=== PATIENT | male | born 1995 | race African-American/Black ===

== ENCOUNTER 2017-09-12 00:38 | Emergency (ER) | payer OTHER ==
[2017-09-12] MEDS: diphenhydrAMINE 50 MG/ML VIAL IVP (01:57)
[2017-09-12] MEDS: PROCHLORPERAZINE 10 MG/2 ML VIAL. IV (01:57)
[2017-09-12] MEDS: IV NORMAL SALINE 1000ML BAG 1,000 ML IV (01:58)
== END 2017-09-12 03:40 | disposition home or self-care (01) ==
LOC: ER 00:38
DX: R11.2 Nausea with vomiting, unspecified (principal); R09.81 Nasal congestion; R53.81 Other malaise; J45.909 Unspecified asthma, uncomplicated; F12.10 Cannabis abuse, uncomplicated; Z88.0 Allergy status to penicillin
CPT/HCPCS: 96361; 96374; 96375; 99285-25; J0780; J1200; J7030

== ENCOUNTER 2019-08-24 15:07 | Emergency (ER) | payer OTHER ==
[~2019-08-24] VITALS: Ht 180.3 cm; Wt 111.3 kg
[~2019-08-24 15:07] MED LIST: METO10TA81 PO
[2019-08-24 15:20] VITALS: BP 154/87
[2019-08-24] MEDS ORDERED: FLUT10.6 IH (17:02)
--- NOTE | 2019-08-24 17:03 | PHYS DOC ---
Past Medical History Past Medical History: Asthma (SAURABH HENLEY APRN) Past Surgical History: No Surgical History (SAURABH HENLEY APRN) Smoking Status: Never Smoker Alcohol Use: None Drug Use: Marijuana (SAURABH HENLEY APRN) General Adult EDM: Chief Complaint: SHORTNESS OF BREATH HPI: HPI: Patient is a 23 year old AA male who presents to the ER with complains of shortness of breath at night and intermittent wheezing for the last week. Pt states he has had difficulty staying asleep because of his asthma. He is out of his flovent inhaler and has been using his albuterol as needed. Patient denies any exposure to anyone with COVID-19. Patient states he has been laid off from work and has been staying at home. He denies any fever, body aches, fatigue, nausea, vomiting, diarrhea, abdominal pain, sore throat, headache, cough, or chest pain. He currently denies any pain. (SAURABH HENLEY APRN) Review of Systems: Review of Systems: Constitutional: Denies fever or chills. [] Eyes: Denies change in visual acuity. [] HENT: Denies nasal congestion or sore throat. [] Respiratory: Denies cough or shortness of breath. [] Cardiovascular: Denies chest pain or edema. [] GI: Denies abdominal pain, nausea, vomiting, or diarrhea. [] Musculoskeletal: Denies back pain or joint pain. [] Integument: Denies rash. [] Neurologic: Denies headache, focal weakness or sensory changes. [] Psychiatric: Denies depression or anxiety. [] (SAURABH HENLEY APRN) Heart Score: Risk Factors: Risk Factors: DM, Current or recent (<one month) smoker, HTN, HLP, family history of CAD, obesity. Risk Scores: Score 0 - 3: 2.5% MACE over next 6 weeks - Discharge Home Score 4 - 6: 20.3% MACE over next 6 weeks - Admit for Clinical Observation Score 7 - 10: 72.7% MACE over next 6 weeks - Early Invasive Strategies (SAURABH HENLEY APRN) Allergies: Allergies: Allergies Coded Allergies Type Severity Reaction Last Updated Verified nickel Allergy Unknown 09/12/17 Yes (SAURABH HENLEY APRN) Physical Exam: PE: Constitutional: Well developed, well nourished, no acute distress, non-toxic appearance, obese. [] HENT: Normocephalic, atraumatic, bilateral external ears normal, oropharynx moist, no oral exudates, nose normal. [] Eyes: PERRLA, EOMI, conjunctiva normal, no discharge. [] Neck: Normal range of motion,, no stridor. [] Cardiovascular:Heart rate regular rhythm, no murmur [] Lungs & Thorax: Bilateral breath sounds clear to auscultation, Respirations even and unlabored, no retractions, no respiratory distress [] Skin: Warm, dry, no erythema, no rash. [] Back: No tenderness Extremities: No cyanosis, ROM intact, no edema. [] Neurologic: Alert and oriented X 3, no focal deficits noted. [] Psychologic: Affect normal, judgement normal, mood normal. [] (SAURABH HENLEY APRN) Current Patient Data: Vital Signs: Vital Signs Date Time Temp Pulse Resp B/P (MAP) Pulse Ox O2 Delivery O2 Flow Rate FiO2 08/24/19 15:20 98.2 95 20 154/87 (109) 96 Room Air 98.2 (SAURABH HENLEY APRN) EKG: EKG: [] (SAURABH HENLEY APRN) Radiology/Procedures: Radiology/Procedures: Chest x-ray normal read by Dr. Pearce [] (SAURABH HENLEY APRN) Course & Med Decision Making: Course & Med Decision Making Pertinent Labs and Imaging studies reviewed. (See chart for details) [] (SAURABH HENLEY APRN) Dragon Disclaimer: Dragon Disclaimer: This electronic medical record was generated, in whole or in part, using a voice recognition dictation system. (SAURABH HENLEY APRN) Departure Departure Impression: Primary Impression: Medication refill Additional Impression: Waking at night short of breath Disposition: 01 HOME, SELF-CARE Condition: STABLE Referrals: NO PCP (PCP) Patient Instructions: Asthma Attacks, Prevention, Medication Refill, Emergency Department Additional Instructions: Fill the prescription(s) and use as directed. Avoid triggers such as smoke, fragrance, dust, and pollen. Follow-up with your primary care doctor next week, return to the ER if symptoms worsen. Scripts Fluticasone Propionate (FLOVENT 44MCG HFA) 10.6 Gm Aer.w.adap 2 PUFF IH BID, #1 INHALER 0 Refills Prov: SAURABH HENLEY LEATHER DRESSER 08/24/19 Attending Signature Attending Signature I have reviewed the PA/SHEET METAL ASSEMBLER AND RIVETER's note and plan of care. I was available for consultation as needed during the patient's visit in the emergency department. I agree with the clinical impression, plan, and disposition. (BISHNU PEARCE DO) SAURABH HENLEY APRN Aug 24, 2019 17:03 BISHNU PEARCE DO Aug 24, 2019 23:27
--- NOTE | 2019-08-24 17:11 | RAD ---
EXAM: PA and Lateral Views of the Chest DATE: 08/24/2019 3:45 PM INDICATION: Shortness of air COMPARISON: No Prior FINDINGS: The heart is not enlarged. Mediastinal and hilar contours are normal. No focal parenchymal airspace opacity. No pleural effusion or pneumothorax. IMPRESSION: 1. No radiographic evidence for acute cardiopulmonary process. Electronically signed by: Trevor Rios MD (08/24/2019 5:08 PM) [facility]
== END 2019-08-24 17:07 | disposition home or self-care (01) ==
LOC: ER 15:07
DX: R06.02 Shortness of breath (principal); Z76.0 Encounter for issue of repeat prescription; J45.909 Unspecified asthma, uncomplicated; Z88.8 Allergy status to other drugs, medicaments and biological substances
CPT/HCPCS: 71046; 99283